=== PATIENT | male | born 1965 | race Caucasian/White ===

== ENCOUNTER 2017-09-01 11:01 | Emergency (ER) | payer BC, MEDICARE ==
--- NOTE | 2017-09-01 11:48 | ED ---
Skin Complaint - HPI Summary HPI Summary: Right maxilla swelling and tenderness. This started yesterday with a thumb nail sized area of swelling. This morning it was much worse. No obvious bite. No other locations. No DM. No prior MRSA. It is tender. No fevers or chills. He has dentures and no recent sinus congestion. - History of Current Complaint Time Seen by Provider: 09/01/17 11:27 Stated Complaint: SKIN COMPLAINT Hx Obtained From: Patient, Family/Data Processor Onset/Duration: Started Hours Ago Skin Exposure Onset/Duration: Hours Ago Timing: Constant Onset Severity: Mild Current Severity: Moderate Skin Location: Discrete, Face Character: Swelling, Pain, Redness, Raised, Painful Aggravating Symptom(s): Touch Alleviating Symptom(s): Nothing Associated Signs & Symptoms: Tenderness - Allergy/Home Medications Allergies/Adverse Reactions: Allergies Allergy/AdvReac Type Severity Reaction Status Date / Time MS Celecoxib [Celecoxib] Allergy Anaphylatic Verified 04/09/15 14:24 Shock MS Codeine [Codeine] Allergy Unknown Verified 04/09/15 14:24 Reaction Details MS Oxycodone [Oxycodone] Allergy Hives Verified 04/09/15 14:24 MS Penicillins [Penicillins] Allergy Unknown Verified 04/09/15 14:24 Reaction Details PMH/Surg Hx/FS Hx/Imm Hx Previously Healthy: No Endocrine/Hematology History: Denies: Hx Diabetes Cardiovascular History: Denies: Hx Hypertension, Hx Pacemaker/ICD History: Denies: Hx Renal Disease Sensory History: Denies: Hx Hearing Aid Psychiatric History: Denies: Hx Panic Disorder - Surgical History Surgery Procedure, Year, and Place: LEFT SHOULD[place]CIF[place] [place]C REPLAC[place] [facility] [place] ELBOW TENDON REPAIRED 1992 [place]. APPENDIX 2009 @[facility] Infectious Disease History: Denies: Traveled Outside the [place] in Last 30 Days - Family History Known Family History: Positive: Other - No related skin conditions. Review of Systems Constitutional: Negative Negative: Fever Negative: Dental Pain, Sore Throat, Ear Ache, Nasal Discharge Positive: Other - swelling. All Other Systems Reviewed And Are Negative: Yes Physical Exam Triage Information Reviewed: Yes Vital Signs Reviewed: Yes Appearance: Positive: Well-Appearing, No Pain Distress, Well-Nourished Skin: Positive: Other - right maxillary skin swelling, induration and tenderness. No nasal involvement. No fluctuance. No inner lip, cheeck or gum involvement. Eyes: Positive: EOMI, NATHANAEL. Negative: Conjunctiva Clear, Conjunctiva Inflammed , Discharge ENT: Positive: Pharynx normal, TMs normal, Uvula midline. Negative: Pharyngeal erythema, Nasal congestion, Nasal drainage, Muffled voice, Sinus tenderness Respiratory/Lung Sounds: Positive: Clear to Auscultation, Breath Sounds Present , Decreased Breath Sounds. Negative: Rales, Rhonchi, Subcutaneous Emphysema, Stridor, Tracheal Deviation, Wheezes, Unable to speak in full sentences Cardiovascular: Positive: Pulses are Symmetrical in both Upper and Lower Extremities Abdomen Description: Negative: Distended Musculoskeletal: Negative: Edema Left, Edema Right Neurological: Positive: Sensory/Motor Intact, Alert, Oriented to Person Place, Time, CN Intact II-III Course/Dx - Diagnoses Provider Diagnoses: Cellulitis, face Discharge - Sign-Out/Discharge Documenting (check all that apply): Patient Departure - Discharge Plan Condition: Good Disposition: HOME Prescriptions: Sulfamethox/Trimethoprim DS* [Bactrim DS 800/160 TAB*] 1 tab PO BID #20 tab Patient Education Materials: Cellulitis (DC) Referrals: Matti Cohen MD [Primary Care Provider] - - Billing Disposition and Condition Condition: GOOD Disposition: Home
[2017-09-01 11:49] VITALS: BP 137/71
== END 2017-09-01 12:06 | disposition home or self-care (01) ==
LOC: UCCORT 11:01
DX: L03.211 Cellulitis of face (principal); Z88.5 Allergy status to narcotic agent; Z88.0 Allergy status to penicillin; Z88.6 Allergy status to analgesic agent
CPT/HCPCS: 99212; G0463

== ENCOUNTER 2019-03-16 10:29 | Day surgery (SDC) | payer BC, MEDICARE ==
[~2019-03-16 10:29] MED LIST: Buffered Lidocaine 1% SYRIN* 1 ML/SYRINGE INTRADERM ONE; Dexamethasone TAB* 4 MG ONE; Dexamethasone TAB* 4 MG PO ONE; DiMENhydriNATE IV* 50 MG/ML VIAL IV PUSH PRN; Famotidine IV* 10 MG/ML 2 ML (20 mg) IV ONE; Famotidine IV* 10 MG/ML 2 ML (20 mg) ONE; KETAMINE HCL* 50 MG/ML 10 ML VIAL ONE; Lactated Ringers 1000 ML Bag* 1,000 ML IV SCH; Midazolam* 1 MG/ML 5 ML VIAL (5 MG) ONE; Naloxone* 0.4 MG/ML 1 ML VIAL IV PRN; Ondansetron ODT TAB* 4 MG ONE; Ondansetron ODT TAB* 4 MG PO ONE; PROCHLORPERAZINE INJ 5 MG/ML 2 ML VIAL IV PRN; fentaNYL* 50 MCG/ML 2 ML VIAL (100 MCG VIAL) IV PRN; fentaNYL* 50 MCG/ML 2 ML VIAL (100 MCG VIAL) ONE
[2019-03-16] MEDS ORDERED: Clindamycin 900 MG/D5W BAG(*) 900 MG/50 ML BAG IVPB ONE (10:38)
[2019-03-16] MEDS ORDERED: Bupivacaine 0.25% SDV* 30 ML ONE (12:06)
[2019-03-16] MEDS ORDERED: Propofol* 10 MG/ML 20 ML BTL ONE (12:38)
[2019-03-16] MEDS ORDERED: Lidocaine 2% PF * 5 ML VIAL ONE (12:38)
[2019-03-16 13:49] VITALS: BP 122/68
--- NOTE | 2019-03-16 15:29 | OP ---
DATE OF OPERATION: 03/16/19 - [facility] DATE OF : 61 SURGEON: Logan Mccloud MD VULCANIZER OPERATOR: RUPERTO Ervin ANESTHESIOLOGIST: Dr. Choi. ANESTHESIA: Local MAC. 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 OPERATIVE PROCEDURE: Revision amputation, left ring finger with direct closure. INDICATIONS: Mr. Jones had the aforementioned wood-planer type injury. He is missing all the soft tissue over the dorsum of the bone. He had just tip of the tuft left which is fractured. I talked to him about treatment options. I told him we would do better if we just shorten the finger just a little bit and get the wound closed. He understands and wished to proceed. ESTIMATED BLOOD LOSS: 2 mL. COMPLICATIONS: None. FINDINGS: See above and below. DESCRIPTION OF PROCEDURE: Mr. Jones was seen in the preoperative holding area. The correct site, side, and procedure were identified. We came back to the operating room where the arm was prepped and draped in the usual fashion and a time-out was performed. The finger was exsanguinated and a finger tourniquet was placed on the finger. I had already numbed him up with 0.25% plain Marcaine. I then went ahead and curetted out the hematoma that had developed dorsally. The sterile matrix was missing, but I went ahead and cleaned up the edges. I released the soft tissue around that distal piece that had broken off and I removed the distal piece of tuft. I used a rongeur to smooth the bone back to a nice flat edge at the level where the sterile matrix ended. I then contoured my palmar skin flap. I brought that up. I sewed it into place dorsally with some 4-0 nylon sutures sewing the skin to the nail plate and then excising the dog ears on the corner to get nice smooth contoured edge on both sides. At this point, everything was looking very good. The wound was dressed with Xeroform, some 1-inch Sera, and Coban. He was taken to recovery room in stable condition. [id number]/[facility] #: [id number] [facility]
== END 2019-03-16 13:45 | disposition home or self-care (01) ==
LOC: OREAST 10:29
PROVIDERS: ATTEND Orthopaedic Surgery Hand Surgery
DX: S68.625A Partial traumatic transphalangeal amputation of left ring finger, initial encounter (principal); I10 Essential (primary) hypertension; E78.5 Hyperlipidemia, unspecified; K21.9 Gastro-esophageal reflux disease without esophagitis; M79.7 Fibromyalgia; Z88.0 Allergy status to penicillin; Z72.0 Tobacco use; W31.2XXA Contact with powered woodworking and forming machines, initial encounter; Y92.9 Unspecified place or not applicable
CPT/HCPCS: A9270-GY; J2250; J2704; J3010; J3490; J8540

== ENCOUNTER 2020-06-09 12:35 | Inpatient (IN) ==
[2020-06-09 14:03] LABS: ABS Eosinophils 0.2 10^3/ul (0-0.6); ABS Lymphocytes 2.2 10^3/ul (1.0-4.8); ABS Monocytes 0.5 10^3/ul (0-0.8); ABS Neutrophils 5.3 10^3/ul (1.5-7.7); Eosinophil % 2.3 %; Hematocrit 45 % (42-52); Lymphocyte % 26.9 %; Mean Corpuscular HGB Conc 34 g/dL (31-36); Mean Corpuscular Hemoglobin 32 pg (27-31); Mean Corpuscular Volume 95 fL (80-94); Nucleated Red Blood Cells % 0.1; Platelet Count 325 10^3/uL (150-450); Red Blood Count 4.67 10^6 /uL (4.18-5.48); Red Cell Distribution Width 14 % (10-15); White Blood Count 8.2 10^3/uL (3.5-10.8)
[2020-06-09 14:15] LABS: Albumin 4.5 g/dL (3.2-5.2); Albumin/Globulin Ratio 1.7 (1-3); BUN/Creatinine Ratio 10.9 (8-20); Calcium 9.8 mg/dL (8.6-10.3); EGFR African American 102.6 (>60); EGFR Non-African American 84.8 (>60); Globulin 2.6 g/dL (2-4); Potassium 4.3 mmol/L (3.5-5.0); Total Bilirubin 0.6 mg/dL (0.2-1.0); Total Protein 7.1 g/dL (6.4-8.9)
[2020-06-09] MEDS ORDERED: Lidocaine 1% VIAL 10 MG/ML VIAL ONE (16:08)
[2020-06-09] MEDS ORDERED: Heparin 2 UNITS/ML 1000 mls 1,000 ML IV ONE (16:08)
[2020-06-09] MEDS ORDERED: diPHENhydraMINE IV 50 MG/ML 1 ml VIAL (BENADRYL) ONE (16:08)
[2020-06-09] MEDS ORDERED: Midazolam 5 mg/5 ml VIAL 1 mg/ml 5 ml VIAL (5 mg) ONE (16:08)
[2020-06-09] MEDS ORDERED: fentaNYL PATCH 25 MCG/HR 1 PATCH TRANSDERM SCH (18:00)
[2020-06-09 18:16] LABS: Creatine Kinase 57 U/L (10-223)
[2020-06-09 18:40] LABS: Troponin I 0.03 ng/mL (<0.03)
[2020-06-09] MEDS: fentaNYL Patch Check Q Shift NOTE FOLLOW UP SCH (19:01)
[2020-06-10] MEDS ORDERED: fentaNYL 100 mcg/2 ml 50 MCG/ML VIAL IV SLOW PU ONE (04:22)
[2020-06-10] MEDS ORDERED: HYDROmorphone 0.5 MG/0.5 ML SYRINGE ONE (04:24)
[2020-06-10 06:01] LABS: ABS Eosinophils 0.3 10^3/ul (0-0.6); ABS Lymphocytes 4.1 10^3/ul (1.0-4.8); ABS Monocytes 0.8 10^3/ul (0-0.8); ABS Neutrophils 5.2 10^3/ul (1.5-7.7); Eosinophil % 3.3 %; Hematocrit 43 % (42-52); Hemoglobin 14.8 g/dL (14.0-18.0); Lymphocyte % 39.5 %; Mean Corpuscular HGB Conc 34 g/dL (31-36); Mean Corpuscular Hemoglobin 32 pg (27-31); Mean Corpuscular Volume 94 fL (80-94); Mean Platelet Volume 8.2 fL (7.4-10.4); Platelet Count 274 10^3/uL (150-450); Red Blood Count 4.58 10^6 /uL (4.18-5.48); Red Cell Distribution Width 14 % (10-15); White Blood Count 10.5 10^3/uL (3.5-10.8)
[2020-06-10 06:12] LABS: Anion Gap 5 mmol/L (2-11); Blood Urea Nitrogen 13 mg/dL (6-24); CO2 Carbon Dioxide 26 mmol/L (22-32); Calcium 9.6 mg/dL (8.6-10.3); Chloride 106 mmol/L (101-111); EGFR African American 118.8 (>60); EGFR Non-African American 98.2 (>60); Glucose 90 mg/dL (70-100); Magnesium 1.9 mg/dL (1.9-2.7); Potassium 4.1 mmol/L (3.5-5.0); Sodium 137 mmol/L (135-145)
[2020-06-10] MEDS ORDERED: Magnesium Sulfate IV 1GM/100ML 1 GM/100 ML BAG IV ONE (07:14)
[2020-06-10] MEDS: fentaNYL Patch Check Q Shift NOTE FOLLOW UP SCH ×2 (07:16→19:00)
[2020-06-10 08:02] LABS: Troponin I 0.03 ng/mL (<0.03)
[2020-06-10] MEDS ORDERED: fentaNYL 100 mcg/2 ml 50 MCG/ML VIAL IV SLOW PU PRN (09:52)
[2020-06-10 10:59] LABS: Ferritin 96.1 ng/mL (24-336)
[2020-06-10] MEDS ORDERED: Lidocaine PATCH 5% PATCH TRANSDERM ONE (16:57)
[2020-06-10] MEDS: Heparin 5000 UNITS/ML 1 mL VIAL SUBCUT SCH (22:22)
[2020-06-10] MEDS ORDERED: NS 0.9% 1000 ml BAG 1,000 ML IV SCH (23:55)
[2020-06-11 04:19] LABS: ABS Basophils 0.1 10^3/ul (0-0.2); ABS Eosinophils 0.2 10^3/ul (0-0.6); ABS Lymphocytes 3.5 10^3/ul (1.0-4.8); ABS Monocytes 0.7 10^3/ul (0-0.8); ABS Neutrophils 6.4 10^3/ul (1.5-7.7); Eosinophil % 1.9 %; Hematocrit 44 % (42-52); Hemoglobin 14.9 g/dL (14.0-18.0); Lymphocyte % 31.9 %; Mean Corpuscular HGB Conc 34 g/dL (31-36); Mean Corpuscular Hemoglobin 33 pg (27-31); Mean Corpuscular Volume 96 fL (80-94); Mean Platelet Volume 7.4 fL (7.4-10.4); Platelet Count 226 10^3/uL (150-450); Red Blood Count 4.56 10^6 /uL (4.18-5.48); Red Cell Distribution Width 14 % (10-15); White Blood Count 10.8 10^3/uL (3.5-10.8)
[2020-06-11 04:35] LABS: BUN/Creatinine Ratio 22.6 (8-20); Calcium 9.4 mg/dL (8.6-10.3); EGFR Non-African American 94.2 (>60); Potassium 3.9 mmol/L (3.5-5.0)
[2020-06-11] MEDS ORDERED: Lidocaine Patch REMOVE PATCH PATCH OFF ONE (05:00)
[2020-06-11] MEDS: Heparin 5000 UNITS/ML 1 mL VIAL SUBCUT SCH ×3 (05:52→22:42)
[2020-06-11] MEDS: fentaNYL Patch Check Q Shift NOTE FOLLOW UP SCH ×2 (07:18→19:25)
[2020-06-11] MEDS ORDERED: Clindamycin 900 MG/D5W BAG 900 MG/50 ML BAG IVPB PRN (08:30)
[2020-06-11] MEDS ORDERED: Midazolam 5 mg/5 ml VIAL 1 mg/ml 5 ml VIAL (5 mg) ONE ×2 (09:48→10:44)
[2020-06-11] MEDS ORDERED: VERAPAMIL 2.5 MG/ML 2 ML VIAL ** 5 mg/2 ml ONE (09:48)
[2020-06-11] MEDS ORDERED: Lidocaine 1% VIAL 10 MG/ML VIAL ONE (09:48)
[2020-06-11] MEDS ORDERED: fentaNYL 100 mcg/2 ml 50 MCG/ML VIAL ONE (09:48)
[2020-06-11] MEDS ORDERED: Heparin 1,000 UNIT/ML 10 ml (10,000 UNITS) CATHLAB/DIALYSIS ONE (09:48)
[2020-06-11] MEDS ORDERED: Iohexol 350 (CONTRAST) 200 ML MDV IV ONE (09:49)
[2020-06-11] MEDS ORDERED: Heparin 2 UNITS/ML IVPREMIX 3,000 UNIT/1,500 ML BAG IV ONE (09:49)
[2020-06-11] MEDS ORDERED: nitroGLYCERIN DRIP 25,000 MCG/250 ML BTL ONE (09:50)
[2020-06-11 17:54] LABS: ABS Basophils 0.1 10^3/ul (0-0.2); ABS Eosinophils 0.3 10^3/ul (0-0.6); ABS Lymphocytes 3.8 10^3/ul (1.0-4.8); ABS Monocytes 0.7 10^3/ul (0-0.8); ABS Neutrophils 6.9 10^3/ul (1.5-7.7); Eosinophil % 2.4 %; Hematocrit 43 % (42-52); Hemoglobin 14.7 g/dL (14.0-18.0); Lymphocyte % 32.2 %; Mean Corpuscular HGB Conc 34 g/dL (31-36); Mean Corpuscular Hemoglobin 32 pg (27-31); Mean Corpuscular Volume 95 fL (80-94); Mean Platelet Volume 7.6 fL (7.4-10.4); Platelet Count 239 10^3/uL (150-450); Red Blood Count 4.54 10^6 /uL (4.18-5.48); Red Cell Distribution Width 14 % (10-15); White Blood Count 11.7 10^3/uL (3.5-10.8)
[2020-06-11 18:06] LABS: Albumin 4.1 g/dL (3.2-5.2); Albumin/Globulin Ratio 1.6 (1-3); Calcium 9.3 mg/dL (8.6-10.3); EGFR African American 106.6 (>60); EGFR Non-African American 88.1 (>60); Globulin 2.5 g/dL (2-4); Potassium 3.7 mmol/L (3.5-5.0); Total Bilirubin 0.6 mg/dL (0.2-1.0); Total Protein 6.6 g/dL (6.4-8.9)
[2020-06-11 19:18] LABS: TSH Ultra Thyroid Stim Horm 1.49 mcIU/mL (0.34-5.60)
[2020-06-12] MEDS: Heparin 5000 UNITS/ML 1 mL VIAL SUBCUT SCH (05:49)
[2020-06-12] MEDS: fentaNYL Patch Check Q Shift NOTE FOLLOW UP SCH (07:23)
[2020-06-12 08:18] VITALS: BP 148/98
[2020-06-12 08:25] LABS: Calcium 9.4 mg/dL (8.6-10.3); EGFR African American 103.9 (>60); EGFR Non-African American 85.9 (>60); Potassium 3.9 mmol/L (3.5-5.0)
[2020-06-12 10:12] LABS: Folate 10.52 ng/mL (5.90-24.80)
[2020-06-12] MEDS ORDERED: Enoxaparin 40 MG/0.4 ML SYR SUBCUT SCH (12:00)
== END 2020-06-12 10:18 | disposition home or self-care (01) | DRG 171 ==
LOC: ED 12:35 → ICU 15:36 → MEDTELE 06-11 16:10
PROVIDERS: ADMIT Internal Medicine; ATTEND Hospitalist